=== PATIENT | male | born 1960 | race Caucasian/White ===

== ENCOUNTER 2017-10-20 09:56 | Day surgery (SDC) | payer BC ==
[~2017-10-20] VITALS: Ht 167.6 cm; Wt 70.3 kg
[~2017-10-20 09:56] MED LIST: AMLOD-VALSA-HC1 EAC4 PO; ASPIR-LOW81 MG PO; CRESTOR20 MG PO; HYDROCHLOROTH12.5 M3 PO; RANITIDINE HCL150 MG PO
== END 2017-10-20 15:45 | disposition home or self-care (01) ==
LOC: CATH 09:56
DX: I25.119 Atherosclerotic heart disease of native coronary artery with unspecified angina pectoris (principal); I25.82 Chronic total occlusion of coronary artery; I10 Essential (primary) hypertension; E78.5 Hyperlipidemia, unspecified; K21.9 Gastro-esophageal reflux disease without esophagitis
CPT/HCPCS: C1769; C1887; J1644; J2250; J3010; J7040

== ENCOUNTER 2018-03-02 21:15 | Inpatient (IN) | payer BC ==
[~2018-03-02] VITALS: Ht 165.1 cm; Wt 69.0 kg
[~2018-03-02 21:15] MED LIST changes: +AMLODIPINE BESYL5 MG PO; +IRON325 M1 PO; +LOPRESSOR100 M1 PO
[2018-03-03 06:09] VITALS: BP 125/84
[2018-03-03 11:37] VITALS: BP 124/86
[2018-03-03 15:38] VITALS: BP 111/73
[2018-03-03 20:25] VITALS: BP 100/67
[2018-03-04 00:21] VITALS: BP 110/69
[2018-03-04 04:30] VITALS: BP 107/59
[2018-03-04 06:16] LABS: HEMATOCRIT 34.4 % (38.0-50.0)
[2018-03-04 06:34] LABS: HEMOGLOBIN 11.6 G/DL (12.5-16.6); MCV 95.8 FL (86-99)
[2018-03-04 06:38] LABS: CHLORIDE 105 MEQ/L (99-109); CREATININE 0.8 MG/DL (0.6-1.3); GFR ESTIMATE (CALCULATED) > 59 mL/min/ (58.99-99999); GLUCOSE 111 mg/dL (70-99); POTASSIUM 4.3 MEQ/L (3.7-5.4); SODIUM 137 MEQ/L (136-147); UREA NITROGEN (BUN) 17 mg/dL (9-23)
[2018-03-04 08:21] VITALS: BP 138/83
[2018-03-04] MEDS ORDERED: BENADRYL25 MG PO (10:42)
[2018-03-04] MEDS ORDERED: TYLENOL REGULA325 MG PO (10:44)
[2018-03-04] MEDS ORDERED: SENNA PLUS TAB1 EACH PO (10:44)
[2018-03-04] MEDS ORDERED: CELECOXIB200 MG PO (10:45)
[2018-03-04] MEDS ORDERED: OXYCODONE HCL5 MG PO (10:45)
[2018-03-04] MEDS ORDERED: ELIQUIS2.5 MG PO (10:45)
[2018-03-04] MEDS ORDERED: Salonpas 4% Patch TD (10:45)
[2018-03-04 11:15] VITALS: BP 132/79
== END 2018-03-04 11:25 | DRG 470 ==
LOC: ENRESERV 21:15 → 3WEST 03-03 05:41 → 2SOUTH 03-03 05:41 → 3WEST 03-03 11:26 → 2SOUTH 03-03 15:20 → 3WEST 03-04 11:25
PROVIDERS: Orthopaedic Surgery
PROC: 0SRC0J9 Replacement of Right Knee Joint with Synthetic Substitute, Cemented, Open Approach (ICD-10-PCS; principal; 2018-03-03)
DX: M17.11 Unilateral primary osteoarthritis, right knee (principal); I10 Essential (primary) hypertension; E78.00 Pure hypercholesterolemia, unspecified; K21.9 Gastro-esophageal reflux disease without esophagitis; Q74.1 Congenital malformation of knee; G89.29 Other chronic pain; Z95.1 Presence of aortocoronary bypass graft; Z79.82 Long term (current) use of aspirin
CPT/HCPCS: 80048; 85014; 85018; C1713; J0131; J0690; J1100; J1885; J2250; J2795; J3475; J7050; S0020